=== PATIENT | female | born 2005 | race African-American/Black ===

== ENCOUNTER 2024-05-22 20:42 | Emergency (ER) | payer OTHER ==
[~2024-05-22] VITALS: Ht 152.4 cm; Wt 74.8 kg
[2024-05-22 20:52] VITALS: PULSE 81; RESP 18; TEMP 97.9; O2SAT 98
[2024-05-22] MEDS: IBUPROFEN 400 MG TAB PO ONE (21:04)
== END 2024-05-22 21:38 | disposition home or self-care (01) ==
LOC: FSED 20:46
DX: S93.491A Sprain of other ligament of right ankle, initial encounter (principal); X50.1XXA Overexertion from prolonged static or awkward postures, initial encounter; Y93.02 Activity, running; Y92.89 Other specified places as the place of occurrence of the external cause
CPT/HCPCS: 99283